=== PATIENT | male | born 1955 | race Caucasian/White ===

== ENCOUNTER → 2016-12-26 | Outpatient (CLI) | payer BC, OTHER ==
--- NOTE | 2016-12-26 12:21 | Diagnostic Imaging Report ---
PROCEDURE: MRI right joint upper extremity without contrast. TECHNIQUE: Multiplanar, multisequence non contrast-enhanced MRI of the right upper extremity was accomplished. INDICATION: Right shoulder pain. FINDINGS: There is no os acromiale or Hill-Sachs deformity. There is significant osteoarthritis changes along the acromioclavicular joint with prominent inferior osteophytes that has an impression upon the underlying supraspinatus myotendinous junction. Subchondral edema at the AC joint is seen. The supraspinatus and the infraspinatus tendons demonstrate mild increased signal compatible with tendinosis with low-grade bursal side partial tear. There is no high-grade tear or retracted tendon fiber seen. The subscapular tendon appears intact. The long head of biceps tendon is in its groove. The superior segment of the labrum demonstrates increased signal suggestive of a SLAP tear. The muscle bulk and signal around the shoulder appear normal. IMPRESSION: 1. There is prominent acromioclavicular joint osteoarthritis with inferior osteophytes. This is associated with rotator cuff tendinosis and low-grade bursal side partial tear particularly involving the supraspinatus tendon. 2. Increased signal in the superior segment of the labrum suggestive of a SLAP tear. Dictated by: Dictated on workstation # [id number]
--- NOTE | 2016-12-26 13:19 | Diagnostic Imaging Report ---
PROCEDURE: MRI left upper extremity without contrast. TECHNIQUE: Multiplanar, multisequence non contrast-enhanced MRI of the left upper extremity was accomplished. INDICATION: Left shoulder pain. FINDINGS: There is a deformity in the lateral distal aspect of the right clavicle compatible with an old fracture. There is thickening and ossification or an old fracture fragment seen along the coracoclavicular ligament compatible with old injury. There is no acute component or a full-thickness interruption of the fibers identified. The AC joint itself demonstrates no significant abnormality or arthritic changes. The supraspinatus and infraspinatus tendons demonstrate minimal increased signal more prominent in the infraspinatus suggestive of tendinosis. Mild reactive cystic change in the posterior lateral aspect of the humeral head near the footplate insertion of the infraspinatus is seen reactive to tendinopathy. There is mild edema in the subdeltoid bursa without significant distention. There is thickening in the superior and inferior segments of the labrum with increased signal which could relate to degeneration or secondary to an old injury. The long head biceps tendon is in its groove. The subscapular tendon is normal. The muscle bulk and signal is normal. IMPRESSION: 1. Deformity at the lateral aspect of the left clavicle compatible with old fracture. 2. Infraspinatus tendon tendinosis. 3. Increased signal in the superior and inferior segments of the labrum may relate to degeneration or sequela of old injury. Dictated by: Dictated on workstation # [id number]
== END ==
LOC: RAD 10:02
PROVIDERS: ATTEND Orthopaedic Surgery
DX: M25.511 Pain in right shoulder (principal); M25.512 Pain in left shoulder
CPT/HCPCS: 73221